=== PATIENT | male | born 1940 | race Caucasian/White ===

== ENCOUNTER → 2020-11-09 | Outpatient (CLI) | payer OTHER ==
[2020-11-10 05:07] LABS: IgA 278 mg/dL (61-437); IgG 1262 mg/dL (603-1613); IgM 116 mg/dL (15-143)
== END ==
LOC: M.LAB 13:19
PROVIDERS: ATTEND Psychiatry & Neurology Neuromuscular Medicine
DX: G20 Parkinson's disease (principal); G62.2 Polyneuropathy due to other toxic agents; R42 Dizziness and giddiness; E11.9 Type 2 diabetes mellitus without complications

== ENCOUNTER → 2020-12-20 | Outpatient (CLI) | payer OTHER | LOC: M.MRI 11-28 08:30 | PROVIDERS: ATTEND Psychiatry & Neurology Neuromuscular Medicine | DX: M47.814 Spondylosis without myelopathy or radiculopathy, thoracic region (principal); G62.2 Polyneuropathy due to other toxic agents; G20 Parkinson's disease; R42 Dizziness and giddiness; E11.9 Type 2 diabetes mellitus without complications ==

== ENCOUNTER → 2021-01-31 | Outpatient (CLI) | payer OTHER | LOC: M.MRI 11:05 | PROVIDERS: ATTEND Psychiatry & Neurology Neuromuscular Medicine | DX: M47.812 Spondylosis without myelopathy or radiculopathy, cervical region (principal); M47.813 Spondylosis without myelopathy or radiculopathy, cervicothoracic region; M47.814 Spondylosis without myelopathy or radiculopathy, thoracic region; M48.02 Spinal stenosis, cervical region; G62.2 Polyneuropathy due to other toxic agents; G20 Parkinson's disease ==